=== PATIENT | male | born 1975 | race Caucasian/White ===

== ENCOUNTER 2021-09-24 12:51 | Inpatient (IN) | payer OTHER, BC, SELFPAY ==
[2021-09-24 12:52] VITALS: BP 145/86; PULSE 74; RESP 18; TEMP 37.3; O2SAT 100; BMI 34.4
[2021-09-24] MEDS: fentaNYL 100 MCG/2 ML Ampul 50 MCG IV ×2 (13:20→14:48)
[2021-09-24 13:38] LABS: Absolute Lymphocyte Count 2.14 X10^3/uL (0.83-4.51); Absolute Neutrophil Count 4.6 X10^3/uL (2.0-7.7); Basophil# 0.09 X10^3/uL; Basophil% 1.2 % (0-1); Eosinophil# 0.17 X10^3/uL; Eosinophils% 2.2 % (0-5); Hematocrit 43.4 % (40-54); Hemoglobin 14.9 g/dL (13.0-16.5); Lymphocyte # 2.14 X10^3/ul (0.83-4.51); Lymphocyte % 27.7 % (19-41); Mean Corp Hgb Conc 34.3 g/dL (32-36); Mean Corpuscular Hgb 31.2 pg (27.0-32.0); Mean Platelet Vol. 11.2 fl (6.2-12.0); Monocyte% 9.1 % (0-10); NRBC Flagged by Analyzer 0 % (0-5); Neutrophil % 59.4 % (47-70); Platelet Count 170 K/mm3 (150-450); RBC Distribution Width CV 12.6 % (11.6-14.6); RBC Distribution Width SD 42.4 fl (35.1-43.9); Red Blood Count 4.77 M/mm3 (4.6-6.2); White Blood Count 7.7 K/mm3 (4.4-11.0)
--- NOTE | 2021-09-24 13:40 | RAD_ITS ---
STUDY: X-RAY - LEFT TIBIA AND FIBULA REASON FOR EXAM: Male, 45 years old. Trauma TECHNIQUE: 4 view(s) of the tibia and fibula were obtained. COMPARISON: None. FINDINGS: Oblique fracture through the distal shaft of the tibia. Transverse fracture of the proximal neck of the fibula. Soft tissue swelling. RAD/Tibia & Fibula 2 Views IMPRESSION: Oblique fracture through the distal shaft of the tibia with a transverse fracture of the proximal neck of the fibula. Soft tissue swelling. Electronically Signed: Darrian Guerra MD at 14:11 EST ,
[2021-09-24 13:52] LABS: Partial Thromboplast Time 29.3 Seconds (24.1-36.2); Prothrombin Time (Protime)PT. 12.5 SECONDS (11.7-14.9)
[2021-09-24 13:55] LABS: Anion Gap 5 (5-15); BUN 15 mg/dL (7-18); BUN/Creat Ratio 16.1 RATIO (10-20); Calcium,Total 9.1 mg/dL (8.5-10.1); Chloride 106 mmol/L (98-107); Creatinine, Serum 0.93 mg/dL (0.70-1.30); EST Glomerular Filtration Rate 92 mL/min (>60); Est Glom Filt Rate - Afr Amer 111 mL/min (>60); Estimated Creatinine Clearance 104.58 ml/min; Glucose 100 mg/dL (74-106); Sodium Level 137 mmol/L (136-145)
--- NOTE | 2021-09-24 13:56 | EDS_ITS ---
HPI History of Present Illness Chief Complaint: Lower Extremity Injury Informant: patient and EMS Narrative Narrative: Brought in by EMS for concerning left lower extremity fracture. He was climbing down piping at work, her leg got stuck going one way when his body went the other way. Patient was placed 2 x 4 splint with vacuum splint by EMS brought out in to the emergency department. He is status post 100 mcg of IM fentanyl. Nonsurgical wrist fracture and heel fracture in the past does not follow an orthopedist. No anticoagulation medications. Denies paresthesias. Denies any other injuries. Reports he is on medicines for right shoulder pain with meloxicam and gabapentin and Flexeril. He denies any allergies. [facility] Medical History (Updated 09/24/21 @ 16:02 by Paty Mueller) GERD (gastroesophageal reflux disease) Injury of head and neck Smoker Torn meniscus Medical History no medical history Home Medications cyclobenzaprine 10 mg PO TID 09/24/21 [History Last Taken 09/23/21] ergocalciferol (vitamin D2) [Vitamin D2] 1,250 mcg PO MO 09/24/21 [History Last Taken 09/21/21] gabapentin 300 mg PO 4X/DAY 09/24/21 [History Last Taken 09/24/21 12:00] meloxicam 15 mg PO DAILY 09/24/21 [History Last Taken 09/24/21] omeprazole 40 mg PO DAILY 09/24/21 [History Last Taken 09/24/21] Allergy/AdvReac Type Severity Reaction Status Date / Time No Known Allergies Allergy Verified 09/24/21 12:55 Family History (Updated 09/24/21 @ 15:47 by Jin DONALD PA) Father Cancer Grandfather Cancer Other Colon cancer Social History Smoking Status: Current every day smoker tobacco type: cigarettes ROS ROS ED Constitutional Constitutional ED: Denies chills, fever(s) or sweats Eyes Eyes: Denies change in vision ENT ENT ED: Denies dysphagia or sore throat Cardiovascular Cardiovascular: Denies chest pain, leg edema, palpitations or racing heartbeat Respiratory/Chest Respiratory/Chest: Denies cough, dyspnea or dyspnea on exertion Gastrointestinal Gastrointestinal: Denies abdominal pain, diarrhea, nausea or vomiting Genitourinary Genitourinary ED: Denies dysuria, hematuria or urinary frequency Musculoskeletal Musculoskeletal: Reports other Details: Left lower extremity pain ; Denies back pain, extremity pain or neck pain Integumentary Denies rash or wounds Neurologic Neurologic: Denies headache(s), paresthesias or weakness EXAM Physical Exam Const Vital Signs: 09/24/21 12:52 09/24/21 15:07 Temperature 99.2 F H 98.4 F Temperature Source Oral Temporal Pulse Rate 74 80 Respiratory Rate 18 22 H Blood Pressure 145/86 H 130/78 H Blood Pressure Mean 105 95 Pulse Ox 100 99 Oxygen Delivery Method Room Air Room Air Positive well nourished and well developed Constitutional Narrative: GCS 15. Uncomfortable nontoxic. General Appearance ED: well developed HEENT Reports moist mucous membranes normocephalic and atraumatic Eyes PERRL, EOMs intact bilaterally and conjunctivae normal General Eye ED: Yes normal appearance of both eyes Neck no lymphadenopathy and supple General: Negative for tenderness Chest Wall inspection of chest normal Chest: Negative for tenderness Resp normal respiratory effort and normal air movement Effort and Inspection: symmetric chest movement; Negative for respiratory distress Cardio regular rate, regular rhythm and no murmurs Peripheral Pulses: pulses 2+ throughout GI normal to inspection, nondistended, normoactive bowel sounds and non-tender Palpation: Negative for guarding or rebound tenderness present Back/Spine no CVA tenderness and no thoracic nor lumbar tenderness Back/Spine Narrative: No midline tenderness. Extremity Extremity Narrative: Left lower extremity: No pain hip or femur. Patient in a vacuum splint along with 2 x 4 wood board with it being wrapped. Mild pain proximal fibula. There is pain in the mid tibia with swelling around this area. No ankle tenderness. No foot tenderness. Skin intact. Neurovascular intact distally. Soft calves. General Extremety ED: Yes edema; Negative for tenderness General Extremity: edema Neuro oriented x3 and no sensory deficits noted Sensorium / Orientation: awake and alert Skin no rashes or lesions noted and no wounds MDM MDM MDM Narrative Medical decision making narrative: Patient clinically concerns for fracture of lower bones of leg. Soft compartments. I did remove the 2 x 4 splint, vacuum fit was replaced back on for stabilization. He was given additional IV fentanyl. Tib-fib x-rays obtained reviewed by myself concerning for mid shaft spiral fracture tibia with proximal fibular fracture consistent with a Maisonneuve fracture. Labs obtained for surgical planning. I spoke with orthopedist Dr. Alfredo. Patient be admitted under orthopedic service. EKG chest x-ray type and screen Covid testing obtained for preop planning. EKG is normal sinus rhythm. Patient was splinted posterior splint with stirrups for stabilization. PA for orthopedic service was present will evaluate patient in the ED. Procedure note: Splinting: Verbal consent. Patient pretreated with IV fentanyl, nylon sleeve was placed, Kerlix padding with extra padding around the fracture sites of the proximal fibula in the mid tibia was placed. 5 inch plaster posterior splint with 3 inch stirrups were placed. Patient foot placed in a neutral plantar position. Neurovascular intact post splinting. Patient did have normal sensation along the S1 dermatome prior to splinting. Neurovascular intact post splinting. Patient tolerated procedure well. Lab Data Attestation: I reviewed the patient's lab results. Labs: Laboratory Results - last 24 hr 09/24/21 09/24/21 09/24/21 13:01 13:01 13:01 WBC 7.7 RBC 4.77 Hgb 14.9 Hct 43.4 MCV 91.0 MCH 31.2 MCHC 34.3 RDW Std Deviation 42.4 RDW Coeff of Miller 12.6 Plt Count 170 MPV 11.2 Immature Gran % (Auto) 0.400 Neut % (Auto) 59.4 Lymph % (Auto) 27.7 [place] % (Auto) 9.1 Eos % (Auto) 2.2 Baso % (Auto) 1.2 H Absolute Neuts (auto) 4.6 Absolute Lymphs (auto) 2.14 Nucleated RBC % 0 PT 12.5 INR 1.0 APTT 29.3 Sodium 137 Potassium 4.0 Chloride 106 Carbon Dioxide 26.0 Anion Gap 5 BUN 15 Creatinine 0.93 Estim Creat Clear Calc 104.58 Est GFR (MDRD) Af Amer 111 Est GFR (MDRD) Non-Af 92 BUN/Creatinine Ratio 16.1 Glucose 100 Calcium 9.1 Blood Type Antibody Screen 09/24/21 14:45 WBC RBC Hgb Hct MCV MCH MCHC RDW Std Deviation RDW Coeff of Miller Plt Count MPV Immature Gran % (Auto) Neut % (Auto) Lymph % (Auto) [place] % (Auto) Eos % (Auto) Baso % (Auto) Absolute Neuts (auto) Absolute Lymphs (auto) Nucleated RBC % PT INR APTT Sodium Potassium Chloride Carbon Dioxide Anion Gap BUN Creatinine Estim Creat Clear Calc Est GFR (MDRD) Af Amer Est GFR (MDRD) Non-Af BUN/Creatinine Ratio Glucose Calcium Blood Type O NEGATIVE Antibody Screen NEGATIVE Radiography Diagnostic Testing: Clinical Impression(s) from Imaging Studies Tibia/Fibula X-Ray 09/24/21 13:40 IMPRESSION: Oblique fracture through the distal shaft of the tibia with a transverse fracture of the proximal neck of the fibula. Soft tissue swelling. Electronically Signed: Darrian Guerra MD at 14:11 EST , Ankle X-Ray 09/24/21 15:36 IMPRESSION: Improved alignment distal tibia status post splinting. Proximal fibular fracture is not included within the [id number]. Electronically Signed: Jeffrey Peralta MD at 23:16 EST , EKG Initial EKG: Attestation: I personally reviewed and interpreted this EKG as follows: Comments: Sinus rate of 74, no ST or T wave changes QTC 390. Discharge Plan Dx/Rx/DC Orders Clinical Impression: Closed fracture of left lower leg, Injury of left lower extremity Disposition [facility] Discharge Date/Time: 09/24/21 15:31
--- NOTE | 2021-09-24 14:30 | HP.PCM_ITS ---
HPI - General General Date of Admission: 09/24/21 HPI Narrative KYLEE OH, is a 45 M who presents to the Emergency department following an injury at work this morning. X-rays taken in the emergency department revealed midshaft spiral fracture of the tibia as well as a proximal fibula fracture and therefore orthopedic consult was ordered. PAtient was seen bedside in the emergency department. Patient was having posterior splint applied upon entering and therefore having some moderate discomfort. After splint was finished, he was resting comfortably rating pain at a 4 or 5 out of 10. He denied any numbness or tingling or gross motor dysfunction of the extremity. No other current symptoms. [facility] Medical History no medical history Home Medications cyclobenzaprine 10 mg PO TID 09/24/21 [History Last Taken 09/23/21] ergocalciferol (vitamin D2) [Vitamin D2] 1,250 mcg PO MO 09/24/21 [History Last Taken 09/21/21] gabapentin 300 mg PO 4X/DAY 09/24/21 [History Last Taken 09/24/21 12:00] meloxicam 15 mg PO DAILY 09/24/21 [History Last Taken 09/24/21] omeprazole 40 mg PO DAILY 09/24/21 [History Last Taken 09/24/21] Allergy/AdvReac Type Severity Reaction Status Date / Time No Known Allergies Allergy Verified 09/24/21 12:55 Family History (Updated 09/24/21 @ 15:47 by Jin DONALD PA) Father Cancer Grandfather Cancer Other Colon cancer Social History Smoking Status: Current every day smoker tobacco type: cigarettes ROS Constitutional Constitutional: Denies fever(s) or night sweats Cardiovascular Cardiovascular: Denies abdominal pain, chest pain, diaphoresis, dizziness or nausea Respiratory/Chest Respiratory/Chest: Denies change in mental status, change in phlegm color, chest congestion, chest tightness, cough, dry cough, shortness of breath at rest or wheezing Gastrointestinal Gastrointestinal: Denies abdominal pain, bloating or vomiting Musculoskeletal Musculoskeletal: Reports extremity pain Integumentary Integumentary: Denies wounds Neurologic Neurologic: Denies abnormal speech, dizziness, memory loss, numbness or other v isual disturbances Vital Signs Vital Signs Vital Signs: 09/24/21 12:52 Temperature 99.2 F H Temperature Source Oral Pulse Rate 74 Respiratory Rate 18 Blood Pressure 145/86 H Blood Pressure Mean 105 Pulse Ox 100 Oxygen Delivery Method Room Air Weight Weight: 246 lb 11.156 oz Body Mass Index (BMI) 34.4 Physical Exam Const alert, oriented x3, healthy appearing and well nourished Constitutional Narrative: Patient shows evidence of mild discomfort at rest and moderate with movements of the extremity General Appearance: cooperative and comfortable Extremity normal capillary refill General Extremity: edema left lower extremity mild; Negative for cyanosis Left Lower Extremity: lower leg inspection (mild generalized swelling), palpation (tenderness mid-shaft tibia and proximal fibula), neurovascular exam (intact sensation to light touch of the foot. He has intact motor function of the toes including great toe. He does have intact dorsiflexion of the ankle a lthough limtied due to splint) and special tests Results Lab / Micro Data Result Diagrams: 09/24/21 13:01 09/24/21 13:01 Labs: Laboratory Results - last 24 hr 09/24/21 13:01: WBC 7.7, RBC 4.77, Hgb 14.9, Hct 43.4, MCV 91.0, MCH 31.2, MCHC 34.3, RDW Std Deviation 42.4, RDW Coeff of Miller 12.6, Plt Count 170, MPV 11.2, Immature Gran % (Auto) 0.400, Neut % (Auto) 59.4, Lymph % (Auto) 27.7, [place] % (Auto) 9.1, Eos % (Auto) 2.2, Baso % (Auto) 1.2 H, Absolute Neuts (auto) 4.6, Absolute Lymphs (auto) 2.14, Nucleated RBC % 0 09/24/21 13:01: PT 12.5, INR 1.0, APTT 29.3 09/24/21 13:01: Sodium 137, Potassium 4.0, Chloride 106, Carbon Dioxide 26.0, Anion Gap 5, BUN 15, Creatinine 0.93, Estim Creat Clear Calc 104.58, Est GFR (MDRD) Af Amer 111, Est GFR (MDRD) Non-Af 92, BUN/Creatinine Ratio 16.1, Glucose 100, Calcium 9.1 Radiology Impression Tibia/Fibula X-Ray 09/24/21 13:40 IMPRESSION: Oblique fracture through the distal shaft of the tibia with a transverse fracture of the proximal neck of the fibula. Soft tissue swelling. Electronically Signed: Darrian Guerra MD at 14:11 EST , Assessment & Plan Assessment/Plan (1) Closed fracture of left lower leg: (2) Injury of left lower extremity: (3) Displaced spiral fracture of shaft of left tibia: PLAN: Patient presented to the emergency department today following an injury at work. Patient ended up suffering a midshaft spiral tibial fracture as well as a proximal fibula fracture. At this time patient will be taken to the operating room tomorrow morning around 7:30 AM for a tibial kendell placement. Patient should be n.p.o. after 7.pm this evening (12- hours pre-operatively). No NSAIDS. Continue with icing and elevation of the affected extremity. Continue to monitor neurovascular signs or symptoms per protocol. We did discuss risks and benefits of surgical procedure to include but not limited to infection, neurovascular injury, blood loss, blood clot, failure of procedure, loss of limb/loss of life from anesthesia. (4) Fracture of proximal end of left fibula: Charges/Coding Multi Select Codes Visit Charges Office Visit/Consults: 96041 OP Consult L3 (exam in ED prior to admission)
--- NOTE | 2021-09-24 14:33 | EKG12_ITS ---
Test Reason : PRE-OP Blood Pressure : / mmHG Vent. Rate : 074 BPM Atrial Rate : 074 BPM P-R Int : 144 ms QRS Dur : 092 ms QT Int : 352 ms P-R-T Axes : 057 -03 032 degrees QTc Int : 390 ms Normal sinus rhythm Normal ECG Confirmed by GIOVANNI SMITH, NIGEL ([id number]), graphic editor FLORIN MORRIS ([id number]) on 09/28/2021 10:59:47 AM Referred By: TL Confirmed By:NIGEL DAVILA MD
--- NOTE | 2021-09-24 14:39 | NURSING ---
NO OLD EKGS
--- NOTE | 2021-09-24 14:40 | NURSING ---
MED SURG BURRUSO LEFT LEG FRACTURE
[2021-09-24 15:07] VITALS: BP 130/78; PULSE 80; RESP 22; TEMP 36.9; O2SAT 99
--- NOTE | 2021-09-24 15:36 | RAD_ITS ---
STUDY: X-RAY - LEFT ANKLE REASON FOR EXAM: Male, 45 years old. left lower leg injury and pain TECHNIQUE: 3 view(s) of the ankle. COMPARISON: None. FINDINGS: Slightly displaced oblique fracture distal tibia. Distal fibula appears grossly intact although new plaster splinting obscures detail. Normal medial and lateral malleoli. Normal tibiotalar articulation and ankle mortise. Normal visualized talus and calcaneus. The visualized subtalar, talonavicular, calcaneocuboid and tarsal articulations are normal. The soft tissue structures are unremarkable. RAD/Ankle min 3 Views IMPRESSION: Improved alignment distal tibia status post splinting. Proximal fibular fracture is not included within the [id number]. Electronically Signed: Jeffrey Peralta MD at 23:16 EST ,
[2021-09-24 15:52] VITALS: BMI 32.2
[2021-09-24 16:15] VITALS: BP 131/73; PULSE 71; RESP 18; TEMP 36.9; O2SAT 99
[2021-09-24] MEDS: oxyCODONE 5 MG Tablet PO ×2 (17:09→21:11)
--- NOTE | 2021-09-24 18:02 | RAD_ITS ---
STUDY: X-RAY CHEST REASON FOR EXAM: Male, 45 years old. pre op TECHNIQUE: Single frontal view of the chest. COMPARISON: None. FINDINGS: The lungs are clear and expanded. There is no demonstrated pleural abnormality. Normal size heart. Normal mediastinum and poli. Normal visualized pulmonary arteries. Normal visualized aortic arch and descending thoracic aorta. Normal visualized thoracic spine. Normal visualized ribs, clavicles, and shoulders. There is no demonstrated abnormality of the visualized soft tissue structures of the upper abdomen. RAD/Chest 1 View (Portable) IMPRESSION: Normal x-ray examination of the chest. Electronically Signed: Jeffrey Peralta MD at 20:17 EST ,
--- NOTE | 2021-09-24 19:43 | PCS.PANDOC ---
PANDEMIC DOCUMENTATION INITIATED: Date: 04/13/2021 Time: 190
[2021-09-24 21:06] VITALS: BP 155/85; PULSE 70; RESP 18; TEMP 36.8; O2SAT 97
[2021-09-24] MEDS: Dext 5%-0.45% NS 1,000 ML 125 ML IV (23:59)
[2021-09-25] VITALS (11 sets, daily range): BP systolic 122–162; BP diastolic 69–99; PULSE 65–83; RESP 14–18; TEMP 35.8–36.7; O2SAT 94–100; BMI 32.2
[2021-09-25] MEDS: oxyCODONE 5 MG Tablet PO (05:27)
--- NOTE | 2021-09-25 07:15 | RAD_ITS ---
STUDY: X-RAY - LEFT TIBIA AND FIBULA REASON FOR EXAM: Male, 45 years old. FX. Tibial rodding. TECHNIQUE: 7 intraoperative view(s) of the tibia and fibula were obtained. COMPARISON: Comparison is made with prior examination dated 03/24/2022. FINDINGS: The patient is status post intramedullary kendell fixation of the tibial fracture. There is good alignment. Stable appearance of the nondisplaced proximal fibular fracture. The soft tissue structures are unremarkable. RAD/Tibia & Fibula 2 Views IMPRESSION: Intraoperative imaging provided for intramedullary kendell fixation of the tibial fracture. There is good alignment. Electronically Signed: Darrian Guerra MD at 9:56 EST ,
[2021-09-25] MEDS: Lidocaine 1% (30 ml sdv) 30 ML Vial (09:34)
--- NOTE | 2021-09-25 09:42 | OP.PCM_ITS ---
Report of Operation Date of Procedure: 09/25/21 Description of Surgical Findings:: Preoperative diagnosis: [left tibial diaphyseal spiral fracture with proximal fibular fracture] Postoperative diagnosis: Same Procedure: Intramedullary rodding of the[ left] tibia Anesthesia: [General] Implants: Synthes intramedullary tibial kendell size [13mm x 345], [With 2 proximal Medial to lateral screws and 2 distal medial to lateral screws] EBL: [75] Complications: None Condition: Stable to PACU Tourniquet time: 0 minutes Indication for procedure: [45-year-old male status post injury at work falling into a machine equipment device where his leg was caught between 2 pieces of machinery sustaining a twisting and bending injury. He was brought to the emergency room where x-rays demonstrated a displaced tibial shaft fracture with a proximal Maisonneuve fracture he did have significant rotation initially he was placed in aPosterior slab and stirrup splint by the ER with improved alignment he had no signs of compartment syndrome or neurovascular injury initially. ] We discussed operative versus nonoperative intervention specifically intramedullary rodding of the left tibia Risk benefits and alternatives were reviewed including risk of bleeding infection nerve, artery, bone, tissue damage, blood clot need for further surgery and continued pain.Postoperative expectations Procedure: Patient was in the preoperative holding area once again the upper extremity was then a identified by both patient and physician and was marked. Patient was met by anesthesia and brought back to the operating a wheeled cart transfer the upper table supine position. Anesthesia was started. A well-padded tourniquet was placed on the operative thigh but was not inflated. Patient was prepped and draped in usual sterile fashion a timeout was called ensure the proper patient procedure and extremity were being contemplated. Radiolucent triangle was placed underneath the knee and under fluoroscopy was used to identify the medial slope of the lateral tibial spine . [This was in line with the mid patellar tendon and therefore a midline incision was made.] Full- thickness flap were made until the patellar peritenon was identified and incised and the patellar tendon was split longitudinally. The infrapatellar fat pad was then partially excised. Under fluoroscopy the guidepin was inserted in the appropriate position an opening reamer was performed. We then placed the guide pin past the fracture site to the appropriate level of the tibial plafond . This was done after the fracture was held in a reduced position. We then sequentially reamed to 1mm over the kendell diameter. The appropriate size kendell was then inserted. proximal screw Guide was attached to the proximal nail gig and [2x medial to lateral screws were placed]. we than turned our attention distally and and place to medial to lateral screws through the nail using perfect sho[place] technique. Stab incisions were made and hemostat was used to ensure no injury to the saphenous Vein and nerve. Wounds were thoroughly irrigated and final fluoroscopic images in both AP and lateral projections were saved to both the proximal construct fracture site and distal construct. The patellar tendon was run with a 3-0 Monocryl followed by 3-0 subcutaneous Monocryl stitches followed by boo in the skin, Mepilex dressing was placed over the main incision and Xeroform Op sites were placed over the remainder incisions. thigh-high BERTIN hose was placed over top as well as SCDs. All counts were correct patient tolerated procedure well without any intraoperative complications he was brought back to the PACU in stable condition.
[2021-09-25] MEDS: Dext 5%-0.45% NS 1,000 ML 125 ML IV (11:18)
[2021-09-25 11:26] LABS: Bedside Glucose 136 mg/dL (70-110)
--- NOTE | 2021-09-25 11:57 | CASEMGMT ---
Addendum entered by Too Calhoun 09/25/21 14:06: Pt denies having any preference of DME co. Original Note: RN CM FIRER DIESEL LOCOMOTIVE CM to room to meet with patient for initial transition planning/care coordination assessment. RN CM introduced self and role at [facility]. Pt voices understanding and consents to assessment at this time. Pt resting in bed in no distress at this time. ,Evie, @ bedside. Pt is A/O at this time and answers all questions appropriately. Care providers, pharmacy, and demographics verified/updated at this time. PCP: Gisela Gold Specialists: none Preferred Pharmacy:[facility] Insurance: [facility] [employer] Prescription Benefit: Yes Living Will/HPOA: Pt does not currently have LW/HCPOA. Pt made aware that he can contact as an out-pt and make appt in the future if he decides he would like to talk with someone about this or would like to utilize [facility] social work for advanced directive completion. Given [employer] card with information and contact number. Pt expresses understanding. LNOK: , Evie. Mother. Living Arrangements: Lives w/Evie and 16-yr-old son in 2-story home w/2 steps to enter. Bathroom and bedroom are on the 2nd floor. No bathroom on ground floor. Was independent prior to fall/hospitalization. Transportation: Pt and DME: Pt does not use any DME and does not have any DME available. Pt is not sure of what DME he may need @ discharge. HHC/SNF: No hx of either. PLAN: Home. PT/OT evals pending. CM to follow for any DME needs @ discharge. Anabela GIBBS RN, CM
--- NOTE | 2021-09-25 14:06 | CASEMGMT ---
Addendum entered by Annita Ahmadi 09/25/21 14:28: Received tc back from Salma who states she has not heard back yet on pt first date of injury. SOLITARIO CM in to pt room to verify if pt agreeable to bill any DME recommended by therapy to his primary insurance so as to not delay his dc if it should happen over the weekend. Pt is agreeable to this. Green sheet on the chart for DME equipment as pt has not worked with therapy yet. They have attempted earlier. Original Note: TC to [employer] [facility] and left message with Wilma regarding pt Workers Comp claim number to complete C-9 for DME pt may need. Noted that Salma is searching for First Date of Injury. Awaiting returned call.
[2021-09-25] MEDS: Cefazolin 1 GM/50 ML BAG IV ×2 (15:08→21:40)
[2021-09-25] MEDS: Dext 5%-0.45% NS 1,000 ML 15 ML IV (21:40)
[2021-09-26] MEDS: Cefazolin 1 GM/50 ML BAG IV (06:00)
[2021-09-26] MEDS: APIXABAN 2.5 MG TABLET PO ×2 (07:00→10:00)
[2021-09-26] MEDS: oxyCODONE 5 MG Tablet PO ×2 (07:45→11:45)
== END 2021-09-26 12:10 | disposition home or self-care (01) | DRG 494 ==
LOC: ED 14:46 → MS3 14:57
PROVIDERS: Admitting Provider Orthopaedic Surgery; Emergency Provider Emergency Medicine; PCP Nurse Practitioner Family; Visit Provider Orthopaedic Surgery
PROC: 0QSH36Z Reposition Left Tibia with Intramedullary Internal Fixation Device, Percutaneous Approach (ICD-10-PCS; principal; 2021-09-25 07:15)
DX: S82.242A Displaced spiral fracture of shaft of left tibia, initial encounter for closed fracture (principal); F17.210 Nicotine dependence, cigarettes, uncomplicated; K21.9 Gastro-esophageal reflux disease without esophagitis; S82.862A Displaced Maisonneuve's fracture of left leg, initial encounter for closed fracture; Z20.822 Contact with and (suspected) exposure to COVID-19; Z79.1 Long term (current) use of non-steroidal anti-inflammatories (NSAID); Z79.899 Other long term (current) drug therapy; Y99.0 Civilian activity done for income or pay; Y92.9 Unspecified place or not applicable; W31.9XXA Contact with unspecified machinery, initial encounter; X50.1XXA Overexertion from prolonged static or awkward postures, initial encounter
CPT/HCPCS: 71045; 73590; 73610; 76000; 80048; 82962; 85025; 85610; 85730; 86850; 86900; 86901; 87426; 93005; 97110; 97116; 97162; 99285; C1713; A4216; J2405; J7799

== ENCOUNTER 2021-10-22 14:20 | Outpatient (CLI) | payer OTHER, SELFPAY ==
--- NOTE | 2021-10-22 14:24 | VDLE_ITS ---
Procedure LEFT This is a venous duplex using B-mode, color GSV is normal. flow and spectral Doppler. CFV is compressible, spontaneous, phasic, Exam performed in department. competent, and demonstrates normal The exam was abbreviated due to the COVID 19 augmentation. protocol. FV is compressible, spontaneous, phasic, The exam was diagnostic. competent and demonstrates normal A preliminary report was called and/or faxed augmentation. to Jin Mcdonald. POP V is compressible, spontaneous, phasic, competent and demonstrates normal augmentation. T/P Trunk is compressible. PTV is compressible. LT PerV is compressible. Soleus V is dilated and noncompressible. VL/Venous Duplex US, Unilateral Interpretation Summary Left great saphenous vein appears patent and compressible segmentally. Abreviat ed Covid 19 protocol Acute deep venous thrombosis left soleus vein Ordering Physician: Jin Mcdonald Referring Physician: Juan Alfredo Performed By: Marco Rowell RVT
== END 2021-10-22 23:59 | disposition home or self-care (01) ==
LOC: CVS 14:23
PROVIDERS: PCP Nurse Practitioner Family; Referring Provider Orthopaedic Surgery; Visit Provider Orthopaedic Surgery
DX: S82.242A Displaced spiral fracture of shaft of left tibia, initial encounter for closed fracture (principal); S82.832A Other fracture of upper and lower end of left fibula, initial encounter for closed fracture; M79.89 Other specified soft tissue disorders
CPT/HCPCS: 93971

== ENCOUNTER → 2022-01-20 | Outpatient (CLI) | payer OTHER, BC, SELFPAY ==
--- NOTE | 2022-01-20 13:23 | VDLE_ITS ---
Reason For Study: DVT Procedure LEFT This is a venous duplex using B-mode, color GSV is normal. flow and spectral Doppler. CFV is compressible, spontaneous, phasic, Exam performed in department. competent, and demonstrates normal The exam was abbreviated due to the COVID 19 augmentation. protocol. FV is compressible, spontaneous, phasic, The exam was diagnostic. competent and demonstrates normal A preliminary report was called and/or faxed augmentation. to Dr. Alfredo's office. POP V is compressible, spontaneous, phasic, competent and demonstrates normal augmentation. T/P Trunk is compressible. PTV is compressible. LT PerV is compressible. Soleus V is now compressible. VL/Venous Duplex US, Unilateral Interpretation Summary There is no evidence of left lower extremity deep vein thrombosis. Left great s aphenous vein appears patent and compressible segmentally. Lymph node noted left groin. Previous left soleus vein deep venous thrombosis from October 22, 2021 current ly resolved. Abbreviated COVID-19 protocol utilized Ordering Physician: Juan Alfredo Performed By: Marco Rowell RVMonica
== END | disposition home or self-care (01) ==
PROVIDERS: PCP Nurse Practitioner Family; Visit Provider Orthopaedic Surgery
DX: M79.89 Other specified soft tissue disorders (principal); Z47.89 Encounter for other orthopedic aftercare
CPT/HCPCS: 93971